=== PATIENT | female | born 1945 | race Two or more races ===

== ENCOUNTER 2017-07-21 10:06 | Emergency (ER) | payer MEDICARE ==
[~2017-07-21] VITALS: Ht 170.2 cm; Wt 95.1 kg
[2017-07-21 10:10] VITALS: BP 174/113
[2017-07-21] MEDS ORDERED: LIDOCAINE 1%, 20ML SQ ONE (11:00)
[2017-07-21] MEDS ORDERED: DIPH,PERTUSS(ACELL),TET VAC/PF 0.5 ML IM-VACC ONE ×2 (11:00→11:43)
[2017-07-21] MEDS ORDERED: LIDOCAINE 1%, 20ML ONE (11:07)
== END 2017-07-21 12:18 | disposition home or self-care (01) ==
LOC: ED 11:30
DX: S61.411A Laceration without foreign body of right hand, initial encounter (principal); E11.9 Type 2 diabetes mellitus without complications; I10 Essential (primary) hypertension; W45.8XXA Other foreign body or object entering through skin, initial encounter; Y93.89 Activity, other specified; Y92.009 Unspecified place in unspecified non-institutional (private) residence as the place of occurrence of the external cause; Y99.9 Unspecified external cause status
CPT/HCPCS: 12041; 90471; 90715

== ENCOUNTER 2017-11-11 08:28 | Emergency (ER) | payer MEDICARE ==
[~2017-11-11] VITALS: Ht 172.7 cm; Wt 97.0 kg
[2017-11-11] MEDS ORDERED: SODIUM CHLORIDE 0.9% 1,000ML IVBOLUS ONE (09:00)
[2017-11-11] MEDS ORDERED: SODIUM CHLORIDE FLUSH 10ML SYR IVF ONE (09:00)
[2017-11-11 09:17] LABS: BASOPHILS # (AUTO) 0.03 x10^3/uL (0-0.1); BASOPHILS % (AUTO) 1 % (0-1); EOSINOPHILS # (AUTO) 0.14 x10^3/uL (0-0.4); EOSINOPHILS % (AUTO) 2 % (1-7); LYMPHOCYTES # (AUTO) 1.38 x10^3/uL (1-3.4); LYMPHOCYTES % (AUTO) 24 % (22-44); MD NO; MEAN CORPUSCULAR HEMOGLOBIN 27.7 pg (27.0-34.8); MEAN CORPUSCULAR HGB CONC 33.2 g/dL (32.4-35.8); MEAN CORPUSCULAR VOLUME 83.5 fL (80-100); MEAN PLATELET VOLUME 8.5 fL (7.4-10.4); MONOCYTES # (AUTO) 0.38 x10^3/uL (0.2-0.8); MONOCYTES % (AUTO) 7 % (2-9); NEUTROPHILS # (AUTO) 3.86 x10^3/uL (1.8-6.8); NEUTROPHILS % (AUTO) 67 % (42-75); PLATELET COUNT 299 x10^3/uL (130-400); RED BLOOD COUNT 4.38 x10^6/uL (3.82-5.3); RED CELL DISTRIBUTION WIDTH 15.1 % (9.6-15.2)
[2017-11-11 09:26] LABS: RAPID INFLUENZA A Negative (Negative); RAPID INFLUENZA B Negative (Negative)
[2017-11-11 09:29] LABS: ALBUMIN 2.4 g/dL (3.4-5.0); ANION GAP 8 mmol/L (5-15); CALCIUM 8.4 mg/dL (8.5-10.1); CHLORIDE 106 mmol/L (98-107); CREATININE 0.41 mg/dL (0.55-1.02)
[2017-11-11 09:33] LABS: TROPONIN I < 0.015 ng/mL (0.000-0.045)
[2017-11-11 10:41] LABS: MICROSCOPIC INDICATED
[2017-11-11 10:56] LABS: CULTURE INDICATED? YES
[2017-11-11 12:30] VITALS: BP 157/101
== END 2017-11-11 12:33 | disposition home or self-care (01) ==
LOC: ED 11:36
DX: R53.1 Weakness (principal); E11.9 Type 2 diabetes mellitus without complications; I10 Essential (primary) hypertension
CPT/HCPCS: 36415; 70450; 71020; 80048; 81001; 82040; 82962; 84484; 85025; 87086; 87400; 93005; 96360; 96361; 99285; J7030

== ENCOUNTER 2017-11-20 00:13 | Emergency (ER) | payer MEDICARE ==
[~2017-11-20] VITALS: Ht 172.7 cm; Wt 95.0 kg
[2017-11-20] MEDS ORDERED: PROCHLORPERAZINE 5 MG/ML, 2ML IVPush ONE (02:30)
[2017-11-20] MEDS ORDERED: KETOROLAC 30 MG/1 ML IVPush ONE (02:30)
[2017-11-20] MEDS ORDERED: SODIUM CHLORIDE 0.9% 1,000ML IVBOLUS ONE (02:30)
[2017-11-20] MEDS ORDERED: DIPHENHYDRAMINE 50 MG/ML, 1ML IVPush ONE (02:30)
[2017-11-20 02:33] LABS: BASOPHILS % (AUTO) 0 % (0-1); EOSINOPHILS # (AUTO) 0.06 x10^3/uL (0-0.4); EOSINOPHILS % (AUTO) 1 % (1-7); LYMPHOCYTES # (AUTO) 1.08 x10^3/uL (1-3.4); LYMPHOCYTES % (AUTO) 8 % (22-44); MD NO; MEAN CORPUSCULAR HEMOGLOBIN 27.4 pg (27.0-34.8); MEAN CORPUSCULAR HGB CONC 32.9 g/dL (32.4-35.8); MEAN CORPUSCULAR VOLUME 83.2 fL (80-100); MEAN PLATELET VOLUME 8.5 fL (7.4-10.4); MONOCYTES # (AUTO) 0.37 x10^3/uL (0.2-0.8); MONOCYTES % (AUTO) 3 % (2-9); NEUTROPHILS # (AUTO) 11.31 x10^3/uL (1.8-6.8); NEUTROPHILS % (AUTO) 88 % (42-75); PLATELET COUNT 324 x10^3/uL (130-400); RED BLOOD COUNT 4.48 x10^6/uL (3.82-5.3); RED CELL DISTRIBUTION WIDTH 14.8 % (9.6-15.2)
[2017-11-20] MEDS ORDERED: PROCHLORPERAZINE 5 MG/ML, 2ML ONE (02:40)
[2017-11-20] MEDS ORDERED: KETOROLAC 30 MG/1 ML ONE (02:40)
[2017-11-20] MEDS ORDERED: DIPHENHYDRAMINE 50 MG/ML, 1ML ONE (02:40)
[2017-11-20 02:45] LABS: ANION GAP 10 mmol/L (5-15); CALCIUM 8.7 mg/dL (8.5-10.1); CHLORIDE 108 mmol/L (98-107); CREATININE 0.31 mg/dL (0.55-1.02)
[2017-11-20 04:05] VITALS: BP 143/83
[2017-11-20] MEDS ORDERED: OMNIPAQUE 350 MG/ML, 100ML BOTTLE ONE (05:39)
== END 2017-11-20 05:33 | disposition home or self-care (01) ==
LOC: ED 01:36
DX: G44.219 Episodic tension-type headache, not intractable (principal); I10 Essential (primary) hypertension; E11.9 Type 2 diabetes mellitus without complications
CPT/HCPCS: 36415; 70496; 70498; 80048; 82040; 85025; 96361; 96374; 96375; 99285; J0780; J1200; J1885; J7030; Q9967